=== PATIENT | female | born 1980 | race Caucasian/White ===

== ENCOUNTER 2023-02-15 19:38 | Emergency (ER) | payer OTHER ==
[~2023-02-15] VITALS: Ht 170.2 cm; Wt 131.8 kg
[2023-02-15 19:39] VITALS: BP 157/69; TEMP 97.7; O2SAT 97
[2023-02-15 20:54] LABS: RSV AMPLIFICATION NEGATIVE (NEGATIVE)
== END 2023-02-15 21:39 | disposition home or self-care (01) ==
LOC: M ED 19:38
DX: J06.9 Acute upper respiratory infection, unspecified (principal); B34.9 Viral infection, unspecified

== ENCOUNTER 2024-12-07 09:59 | Outpatient (RCR) | payer OTHER | END 2024-12-29 | LOC: M PT 09:59 | PROVIDERS: ATTEND Student in an Organized Health Care Education/Training Program | DX: M53.3 Sacrococcygeal disorders, not elsewhere classified (principal); M53.86 Other specified dorsopathies, lumbar region ==